=== PATIENT | female | born 1955 | race Caucasian/White ===

== ENCOUNTER → 2017-12-23 | Outpatient (CLI) | payer OTHER ==
--- NOTE | 2017-12-23 12:41 | CT ---
EXAMINATION TYPE: CT abdomen pelvis w con DATE OF EXAM: 12/23/2017 COMPARISON: 06/03/2014 INDICATION: Patient complains of bilateral upper quadrant pain and diarrhea. DLP: 1267.7 mGycm, Automated exposure control for dose reduction was used. CONTRAST: 100 mL of Omnipaque 300. Study performed with Oral Contrast TECHNIQUE: Axial images were obtained from above the diaphragm to the pubic rami in the axial plane a t 5 mm thick sections. Reconstructed images are reviewed on the computer in the coronal plane. FINDINGS: Limited CT sections are obtained the lung bases. The lung bases are clear. CT ABDOMEN: There are scattered small lymph nodes in the periaortic region. Enlarged lymphadenopathy is not evident. Liver: Normal Spleen: Normal Pancreas: Normal Adrenal glands: The adrenal glands are normal. Gallbladder: Normal Kidneys: No masses are evident. No hydronephrosis is present. There is a 1.1 cm cyst measuring 24 H ounsfield units superior posterior right kidney. There is a 1.3 cm cyst in the anterior mid left kidn ey measuring 18 Hounsfield units and may be a posterior lateral left mid renal cyst. Small amount of scarring may be in the anterior inferior right kidney with loss of the renal cortex. Delayed images were obtained through the kidneys, which remain unremarkable. Aorta: Vascular calcification is within the aorta. Inferior vena cava: Normal. CT PELVIS: Loops of bowel within the abdomen and pelvis are normal. There are loops of bowel which are incom pletely distended or lack oral contrast limiting their evaluation. Appendix: Not visualized. No suspicious inflammatory changes are evident. Urinary bladder: Decompressed with limited evaluation. Genitourinary structures: Uterus and ovaries are not identified. Osseous structures: No suspicious lytic or sclerotic lesions. Facet changes are at the lowest lumbar spine level. IMPRESSIONS: 1. Unremarkable CT abdomen and pelvis.
== END | disposition home or self-care (01) ==
LOC: RADCTMAIN 10:20
PROVIDERS: ATTEND Family Medicine
DX: R10.9 Unspecified abdominal pain (principal)
CPT/HCPCS: 74177; Q9967

== ENCOUNTER 2018-01-01 07:04 | Day surgery (SDC) | payer MEDICARE, OTHER ==
[2017-12-30 14:09] VITALS: BMI 35.1
[~2018-01-01 07:04] MED LIST: LACTATED RINGERS 1,000 ML IV SCH
[2018-01-01 08:03] VITALS: RESP 20; TEMP 97.6
[2018-01-01 08:06] LABS: Glucose,Whole Blood 120 mg/dL (75-99)
[2018-01-01] MEDS ORDERED: PROPOFOL 10 MG/ML 20 ML VIAL IV ONE (08:07)
[2018-01-01] MEDS ORDERED: LIDOCAINE 1% INJ 10MG/ML (20 ML MDV) ONE (08:07)
--- NOTE | 2018-01-01 08:29 | P.PCN ---
Date of Procedure: 01/01/18 Procedure(s) Performed: BRIEF HISTORY: Patient is a 62-year-old pleasant white female, scheduled for an elective colonoscopy as a part of evaluation of lower abdominal pain and change in bowel habits for the last several years duration but has been progressively getting worse in the last 2 weeks[address] She had a CT of the abdomen and pelvis done that showed sigmoid diverticulosis. She was treated empirically with antibodies for possible diverticulitis. She still has persistent symptoms and hence came for colonoscopy to evaluate further. She also has prior history of colon polyps and her last colonoscopy was 4 years ago. PROCEDURE PERFORMED: Colonoscopy with random biopsies. PREOPERATIVE DIAGNOSIS: Lower abdominal pain and change in bowel habits and prior history of colon polyps. IV sedation per Anesthesia. PROCEDURE: After informed consent was obtained, the patient, was brought into the endoscopy unit. IV sedation was administered by Anesthesia under continuous monitoring. Digital rectal examination was normal. Initially the Olympus CF- 160 flexible video colonoscope was then inserted in the rectum, gradually advanced into the cecum without any difficulty. Careful examination was performed as the scope was gradually being withdrawn. Ileocecal valve and the appendiceal orifice were visualized and appeared normal. Prep was excellent. Mucosa of the cecum, ascending colon, transverse colon, descending colon, sigmoid colon, and rectum appeared normal. Random biopsies were done from ascending and descending colon to rule out microscope/collagenous colitis. Retroflexion was performed in the rectum and no lesions were seen. The patient tolerated the procedure well. IMPRESSION: Normal-appearing colon from rectum to cecum with no evidence of colorectal neoplasia . Scattered sigmoid diverticulosis but no evidence of diverticulitis. RECOMMENDATIONS: Findings of this examination were discussed with the patient as well as a family. She was advised to follow with the biopsy results. She' ll be seen in office in 2 weeks..
[2018-01-01 09:12] VITALS: BP 125/76; PULSE 74
== END 2018-01-01 09:39 | disposition home or self-care (01) ==
LOC: ORWHC2ENDO 07:04
PROVIDERS: ATTEND Internal Medicine Gastroenterology
DX: K52.9 Noninfective gastroenteritis and colitis, unspecified (principal); K57.30 Diverticulosis of large intestine without perforation or abscess without bleeding; I10 Essential (primary) hypertension; E11.9 Type 2 diabetes mellitus without complications; K21.9 Gastro-esophageal reflux disease without esophagitis; E07.9 Disorder of thyroid, unspecified; Z86.010 Personal history of colon polyps; Z88.6 Allergy status to analgesic agent; Z88.5 Allergy status to narcotic agent; Z79.891 Long term (current) use of opiate analgesic; Z79.899 Other long term (current) drug therapy; Z79.4 Long term (current) use of insulin
CPT/HCPCS: 88305; 45380; J2001; J2704

== ENCOUNTER → 2019-04-11 | Outpatient (CLI) | payer MEDICARE ==
[2019-04-11 11:24] LABS: Basophils # (A) 0.1 k/uL (0-0.2); Basophils % (A) 1 %; Eosinophils # (A) 0.1 k/uL (0-0.7); Eosinophils % (A) 1 %; HCT 49.8 % (34.0-46.0); HGB 15.9 gm/dL (11.4-16.0); Lymphocytes # (A) 2.9 k/uL (1.0-4.8); Lymphocytes % (A) 26 %; MCH 29.9 pg (25.0-35.0); MCHC 31.9 g/dL (31.0-37.0); MCV 93.9 fL (80.0-100.0); Mean Platelet Volume 7.8; Monocytes # (A) 0.5 k/uL (0-1.0); Monocytes % (A) 5 %; Neutrophils # (A) 7.1 k/uL (1.3-7.7); Neutrophils % (A) 64 %; Platelet Count 238 k/uL (150-450); RBC 5.31 m/uL (3.80-5.40); WBC 11.1 k/uL (3.8-10.6)
[2019-04-11 16:10] LABS: African American GFR (CKD) 106.1 (60.0-200.0); Albumin 3.9 g/dL (3.80-4.90); Albumin/Globulin Ratio 1.39 (1.60-3.17); Anion Gap 6.5 mmol/L (4.00-12.00); BUN/Creat Ratio 22.86 Ratio (12.00-20.00); Calcium 9.2 mg/dL (8.7-10.3); Carbon Dioxide 33.5 mmol/L (21.6-31.8); Globulin 2.8 g/dL (1.6-3.3); Total Bilirubin 0.5 mg/dL (0.2-1.2); Total Protein 6.7 g/dL (6.2-8.2)
[2019-04-11 17:19] LABS: Hepatitis A Antibody IgM Non-Reactive (Non-Reactive); Hepatitis B Core IgM Non-Reactive (Non-Reactive)
== END | disposition home or self-care (01) ==
LOC: LABWHC1 10:34
PROVIDERS: ATTEND Dermatology Procedural Dermatology
DX: I77.6 Arteritis, unspecified (principal)
CPT/HCPCS: 36415; 80053; 80074; 85025

== ENCOUNTER → 2020-01-13 | Outpatient (CLI) | payer MEDICARE ==
--- NOTE | 2020-01-14 09:14 | MM ---
Reason for exam: screening (asymptomatic). Last mammogram was performed 3 years and 5 months ago. History: Patient is postmenopausal. Physical Findings: A clinical breast exam by your physician is recommended on an annual basis and results should be correlated with mammographic findings. MG 3D Screening Mammo W/Cad Bilateral CC, MLO, and XCCL view(s) were taken. Prior study comparison: August 21, 2016, bilateral MG 3d diag mammo w/cad RHIANNON. August 29, 2007, bilateral screening mammogram w/CAD. There are scattered fibroglandular densities. There are benign appearing round calcifications in the left breast. There is no discrete abnormality. ASSESSMENT: Benign, BI-RAD 2 RECOMMENDATION: Routine screening mammogram of both breasts in 1 year.
== END | disposition home or self-care (01) ==
LOC: RADMAMWWP 14:33
PROVIDERS: ATTEND Family Medicine
DX: Z12.31 Encounter for screening mammogram for malignant neoplasm of breast (principal)
CPT/HCPCS: 77063; 77067

== ENCOUNTER → 2020-05-24 | Outpatient (CLI) | payer MEDICARE ==
--- NOTE | 2020-05-24 10:49 | FL ---
Barium swallow HISTORY: Dysphasia Patient was given high density barium to drink. 1 minute 45 seconds fluoroscopy time, 88 images obtai willem The swallowing mechanism is normal. No extrinsic or intrinsic esophageal lesion was identified. Degen erative disc changes are noted incidentally in the cervical spine. No visualized gastroesophageal ref lux. Some tertiary esophageal contractions were noted. Small sliding hiatal hernia is noted. IMPRESSION: Small sliding hiatal hernia and some tertiary esophageal contractions noted. Of note the patient was in extreme discomfort throughout the exam.
== END | disposition home or self-care (01) ==
LOC: RADFLMAIN 09:24
PROVIDERS: ATTEND Otolaryngology
DX: K44.9 Diaphragmatic hernia without obstruction or gangrene (principal)
CPT/HCPCS: 74220

== ENCOUNTER → 2022-10-18 | Outpatient (CLI) | payer MEDICARE ==
[2022-10-18 15:39] LABS: Chol/HDL Ratio 2.63 Ratio; LDL Cholesterol,Calculated 71.8 mg/dL (0.0-131.0)
[2022-10-18 16:14] LABS: ALT 30 U/L (8-44); AST 46 U/L (13-35); African American GFR (CKD) 82.1 (60.0-200.0); Albumin 3.8 g/dL (3.8-4.9); Albumin/Globulin Ratio 1.22 (1.60-3.17); Alkaline Phosphatase 85 U/L (41-126); BUN/Creat Ratio 19.74 Ratio (12.00-20.00); Blood Urea Nitrogen 16.8 mg/dL (9.0-27.0); Calcium 8.7 mg/dL (8.7-10.3); Carbon Dioxide 28.7 mmol/L (20.0-27.5); Chloride 100 mmol/L (96-109); Globulin 3.1 g/dL (1.6-3.3); Glucose 144 mg/dL (70-110); Non-African American GFR(CKD) 70.8 (60.0-200.0); Potassium 4.3 mmol/L (3.5-5.5); Sodium 140 mmol/L (135-145); Total Protein 6.9 g/dL (6.2-8.2)
[2022-10-18 20:20] LABS: Microalbumin Creatinine Ratio <30 mg/g Creat (0-30); Urine Creatinine 44.9 mg/dL (28.0-217.0)
== END | disposition home or self-care (01) ==
LOC: LABWHC1 08:41
PROVIDERS: ATTEND Internal Medicine Endocrinology, Diabetes & Metabolism
DX: E11.65 Type 2 diabetes mellitus with hyperglycemia (principal)
CPT/HCPCS: 36415; 80053; 80061; 82043; 82570; 83036; 84443

== ENCOUNTER → 2023-04-22 | Outpatient (CLI) | payer MEDICARE ==
[2023-04-22 16:40] LABS: Basophils # (A) 0.06 X 10*3/uL (0.00-0.10); Basophils % (A) 0.6 %; Eosinophils # (A) 0.16 X 10*3/uL (0.04-0.35); Eosinophils % (A) 1.7 %; HCT 45.7 % (37.2-46.3); HGB 14.4 d/dL (12.0-15.0); Lymphocytes # (A) 3.26 X 10*3/uL (0.90-5.00); Lymphocytes % (A) 35.2 %; MCH 30.7 pg (27.0-32.0); MCHC 31.5 d/dL (32.0-37.0); MCV 97.4 FL (80.0-97.0); Mean Platelet Volume 11.5 FL (9.5-12.2); Monocytes # (A) 0.42 X 10*3/uL (0.20-1.00); Monocytes % (A) 4.5 %; NRBC Per 100 WBC 0.02 X 10*3/uL (0.00-0.01); Neutrophils # (A) 5.32 X 10*3/uL (1.80-7.70); Neutrophils % (A) 57.7 %; Platelet Count 188 X 10*3/uL (140-440); RBC 4.69 X 10*6/uL (4.10-5.20); RDW 14.3 % (11.5-14.5); WBC 9.25 X 10*3/uL (4.50-10.00)
[2023-04-22 16:48] LABS: ALT 15 U/L (8-44); AST 22 U/L (13-35); Albumin/Globulin Ratio 1.29 Ratio (1.60-3.17); Alkaline Phosphatase 82 U/L (41-126); BUN/Creat Ratio 18.56 Ratio (12.00-20.00); Blood Urea Nitrogen 16.7 mg/dL (9.0-27.0); Calcium 9.1 mg/dL (8.7-10.3); Carbon Dioxide 24.9 mmol/L (21.6-31.8); Chloride 105 mmol/L (96-109); Chol/HDL Ratio 2.84 Ratio; Globulin 3.1 d/dL (1.6-3.3); Glucose 108 mg/dL (70-110); LDL Cholesterol,Calculated 65.9 mg/dL (0.0-131.0); Potassium 4.2 mmol/L (3.5-5.5); Sodium 143 mmol/L (135-145); Total Bilirubin 0.3 mg/dL (0.3-1.2); Total Protein 7.1 d/dL (6.2-8.2)
== END | disposition home or self-care (01) ==
LOC: LABWHC1 07:37
PROVIDERS: ATTEND Internal Medicine Endocrinology, Diabetes & Metabolism
DX: Z11.59 Encounter for screening for other viral diseases (principal); E11.65 Type 2 diabetes mellitus with hyperglycemia; E11.21 Type 2 diabetes mellitus with diabetic nephropathy; E78.5 Hyperlipidemia, unspecified; R60.0 Localized edema
CPT/HCPCS: 36415; 80053; 80061; 82043; 82570; 83036; 84443; 85025; 86803

== ENCOUNTER → 2023-09-10 | Outpatient (CLI) | payer MEDICARE ==
--- NOTE | 2023-09-10 08:55 | XR ---
EXAMINATION TYPE: XR Hip Complete RT DATE OF EXAM: 09/10/2023 8:43 AM INDICATION: Patient age:Female; 67 years old; Reason for study: M25.551 Pain in right hip; PHH. COMPARISON: CT abdomen and pelvis 12/23/2017 TECHNIQUE: The right hip was examined in the frontal and lateral projections. FINDINGS: No evidence of any acute osseous pathology, joint dislocation, or soft tissue swelling. Mil d medial joint space narrowing and acetabular sclerosis and marginal spurring of the right hip. IMPRESSION: 1. No acute osseous pathology. 2. Mild osteoarthritic changes of the right hip.
== END | disposition home or self-care (01) ==
LOC: RADXRMAIN 08:23
PROVIDERS: ATTEND Family Medicine
DX: M16.11 Unilateral primary osteoarthritis, right hip (principal)
CPT/HCPCS: 73502

== ENCOUNTER → 2023-12-03 | Outpatient (CLI) | payer MEDICARE ==
[2023-12-03 15:52] LABS: ALT 17 U/L (8-44); AST 23 U/L (13-35); Albumin/Globulin Ratio 1.48 Ratio (1.60-3.17); Alkaline Phosphatase 62 U/L (41-126); Blood Urea Nitrogen 13.3 mg/dL (9.0-27.0); Calcium 9.1 mg/dL (8.7-10.3); Carbon Dioxide 27.5 mmol/L (21.6-31.8); Chloride 102 mmol/L (96-109); Chol/HDL Ratio 2.85 Ratio; Globulin 2.7 g/dL (1.6-3.3); Glucose 137 mg/dL (70-110); LDL Cholesterol,Calculated 80.9 mg/dL (0.0-131.0); Potassium 4.6 mmol/L (3.5-5.5); Sodium 140 mmol/L (135-145); Total Bilirubin 0.6 mg/dL (0.3-1.2); Total Protein 6.7 g/dL (6.2-8.2)
== END | disposition home or self-care (01) ==
LOC: LABWHC1 09:50
PROVIDERS: ATTEND Internal Medicine Endocrinology, Diabetes & Metabolism
DX: E11.65 Type 2 diabetes mellitus with hyperglycemia (principal)
CPT/HCPCS: 36415; 80053; 80061; 82043; 82570; 83036; 84443

== ENCOUNTER → 2024-07-23 | Outpatient (CLI) | payer MEDICARE ==
[2024-07-23 13:58] VITALS: BP 136/77; PULSE 60; RESP 18; TEMP 97.5
--- NOTE | 2024-07-23 16:13 | P.SLEEP ---
History of Present Illness DATE: 07/23/2024 CONSULTATION/NEW PATIENT EVALUATION HISTORY OF PRESENT ILLNESS/SLEEP-WAKE EVALUATION: 68-year-old lady had been e valuated in the sleep center for possible obstructive sleep apnea hypopnea syndrome. SLEEP SCHEDULE: Usually sleep schedule from 92:30 until 68 AM. FALLING ASLEEP: Patient has difficulties with falling asleep, although no TV in bedroom. DURING SLEEP: Patient sleeps on the side and stomach position and wakes up from sleep 3 times with nocturia. No history of hypnogogical hallucinations, sleep paralysis, or cataplexy. DURING THE DAY/WAKE STATE: In the morning patient wake up tired. Anna sleepiness scale is 2. Usually patient does not take any naps. PAST MEDICAL HISTORY: Hypothyroidism, hypertension, diabetes mellitus, acid reflux, fibromyalgia, periodic limb movements. PAST SURGICAL HISTORY: Left knee replacement. MEDICATIONS: Please see below. SOCIAL HISTORY: Please see below. FAMILY HISTORY: Heart problems, arthritis, diabetes. REVIEW OF SYSTEMS: Multiple awakenings from sleep. No fevers. No double vision. No recent chest pain. No shortness of breath. No abdominal pain. No bleeding episodes. No blood in urine. No seizure episodes. PHYSICAL EXAMINATION: GENERAL: A pleasant patient without any distress. VITAL SIGNS: Please see below, weight 193.0 pounds, BMI 33.1. HEENT: PERRLA, EOMI. Evaluation of oropharynx showed tongue protrudes midline, low position of soft palate Mallampati 4. NECK: Supple. No JVD. Thyroid is not palpable. 15 inches in circumference. LUNGS: Clear to percussion and to auscultation. Good air exchange. No wheezing or rhonchi. HEART: S1, S2 regular. No murmurs, gallops or rubs. ABDOMEN: Soft and nontender. Bowel sounds are present. No organomegaly appreciated. EXTREMITIES: No clubbing or cyanosis. [employer] MANAGER: Awake, alert, and oriented x3. Cranial nerves 2 to 7 intact. There is no fasciculation or atrophy noted. No focal deficits observed. ASSESSMENT: 1. Multiple awakenings from sleep with nocturia, extremely low position of soft palate Mallampati 4, feeling tiredness and sleepiness after awakenings in the morning. Obstructive sleep apnea hypopnea syndrome. 2. Hypertension. 3. Diabetes mellitus. 4. Hypothyroidism. 5 hyperlipidemia. 6 . Acid reflux. 7. Fibromyalgia. 8. Status post left knee replacement. 9 . Obesity, BMI 33.1. 10. Psychophysiological insomnia with difficulties to initiate sleep. PLAN: 1. Polysomnography for evaluation of patient's breathing during sleep. 2. Following plan after reading sleep study 3. Preferable position during sleep on the side. 4. No driving if patient feels any sleepiness. Patient is aware of civil and criminal liability for unsafe driving. 5. Sleep hygiene with regular sleep time for at least 7.5-8 hours. 6. Watching and losing weight. Thank you very much for referring this patient for consultation. Sincerely, Josue Katz MD, PhD, FAASM. Diplomat of [place] [employer], Sleep Medicine Board by [place] [employer] [place] [employer] [facility] [place] cc: Francisca Estrada MD Past Medical History Past Medical History: Asthma, CVA/TIA, Diabetes Mellitus, Fibromyalgia, GERD/Reflux, Hyperlipidemia, Hypertension, Osteoarthritis (OA), Thyroid Disorder Additional Past Medical History / Comment(s): HX OF TIA, DIARRHEA, l knee pain, restless legs per pt History of Any Multi-Drug Resistant Organisms: None Reported Past Surgical History: Appendectomy, Hysterectomy, Joint Replacement, Orthopedic Surgery, Tubal Ligation Additional Past Surgical History / Comment(s): RHIANNON CATARACTS, RHIANNON CARPAL TUNNEL, HEEL SPUR, RHIANNON HAMMER TOES, LEFT KNEE REPLACEMENT. Past Anesthesia/Blood Transfusion Reactions: Family History of Problems w/ Anesthesia Additional Past Anesthesia/Blood Transfusion Reaction / Comment(s): DAUGHTER- PONV & DIFFICULTY WAKING UP. Past Psychological History: No Psychological Hx Reported Smoking Status: Former smoker Past Alcohol Use History: None Reported Past Drug Use History: None Reported - Past Family History Mother Family Medical History: Thyroid Disorder Additional Family Medical History / Comment(s): borderline diabetic, pacemaker, arthritis Father Family Medical History: Cancer Additional Family Medical History / Comment(s): SKIN CANCER, heart problems Medications and Allergies Home Medications Medication Instructions Recorded Confirmed Type Cholecalciferol [Vitamin D3] 5,000 unit PO DAILY 06/03/14 01/01/18 History Furosemide [Lasix] 40 mg PO DAILY 06/03/14 07/23/24 History Levothyroxine Sodium [Levoxyl] 125 mcg PO DAILY 06/03/14 07/23/24 History Omeprazole [PriLOSEC] 20 mg PO AC-BID 06/03/14 01/01/18 History glipiZIDE [Glucotrol] 2.5 mg PO AC-BID 06/03/14 01/01/18 History Diphenoxylate HCl/Atropine 1 each PO BID PRN 12/30/17 01/01/18 History [Lomotil 2.5-0.025 mg Tablet] Empagliflozin [Jardiance] 25 mg PO DAILY 12/30/17 01/01/18 History HYDROcodone/APAP 10-325MG [[place] 1 tab PO Q12H PRN 12/30/17 01/01/18 History 10-325] lisinopriL [Zestril] 10 mg PO HS 12/30/17 01/01/18 History Atorvastatin [Lipitor] 10 mg PO DAILY 07/23/24 07/23/24 History Dulaglutide [Trulicity] 1.5 mg SQ WEEKLY 07/23/24 07/23/24 History Losartan [Cozaar] 25 mg PO DAILY 07/23/24 07/23/24 History Omeprazole 40 mg PO BID 07/23/24 07/23/24 History Pioglitazone HCl 30 mg PO DAILY 07/23/24 07/23/24 History rOPINIRole HCL 1 mg PO TID 07/23/24 07/23/24 History Allergies Allergy/AdvReac Type Severity Reaction Status Date / Time acetaminophen Allergy Nausea & Verified 12/30/17 13:42 [From Darvocet-N] Vomiting bupivacaine HCl Allergy -SKIN Verified 12/30/17 13:42 [From Marcaine] TURNED PINK" propoxyphene napsylate Allergy Nausea & Verified 12/30/17 13:42 [From Darvocet-N] Vomiting aspirin AdvReac Nausea & Verified 12/30/17 13:42 Vomiting Physical Exam Vitals: Vital Signs Temp Pulse Resp BP Pulse Ox 07/23/24 13:55 97.5 F L 60 18 136/77 98 Intake and Output 07/23/24 07/23/24 07/23/24 06:59 14:59 22:59 Other: Weight 87.543 kg Sleep Note - Sleep Data ESS Total: 2 - Sleep Note Sleep Note: Temperature: 97.5 F Pulse Rate: 60 Respiratory Rate: 18 Blood Pressure: 136/77 SpO2: 98 Height: 5 ft 4 in Weight: 87.543 kg BMI: Neck Circumference: 15
== END ==
LOC: 3 N SLEEP 13:13
PROVIDERS: ATTEND Internal Medicine
CPT/HCPCS: 99211